=== PATIENT | male | born 1945 | race Two or more races ===

== ENCOUNTER 2017-11-04 12:33 | Emergency (ER) | payer OTHER ==
[~2017-11-04] VITALS: Ht 182.9 cm; Wt 127.0 kg
[~2017-11-04 12:33] MED LIST: ALDACTONE25 MG; AMBIEN10 MG; Aldactone 25 MG TABLET PO; CARdura PO; CEFEPIME IV; COZAAR50 MG; Cozaar PO; DIPHENOXYLATE-A1 TA1; HUMALOG100 U/M1; HUMULIN 70/30 V10 ML; HumaLOG 100 UNIT/1 ML (3ML) SUBCUTANEO; HumuLIN 70-30 VIAL 3ML SUBCUTANEO; IMDUR30 MG; Imdur 30MG PO; Invanz IV; LASIX20 MG; LEVAQUIN750 MG PO; LEVEMIR100 U/ML; Lantus 1000 U/10 ML SUBCUTANEO; Lasix 20MG TAB PO; METFORMIN HCL1000 MG; METOPROLOL TART50 MG; METRONIDAZOLE 500 MG/100 ML IV; Synthroid PO; Toprol Xl 50MG TAB PO; VANCOCIN 1GM/VIALMATE IV; ZOCOR PO; ZOCOR40 MG; Zolpidem Tartrate 10MG PO; [UNRECOGNIZED DRUG - CODE] PO
[2017-11-04] MEDS ORDERED: CARVEDILOL12.5 MG (13:14)
[2017-11-04] MEDS ORDERED: ALLOPURINOL300 MG (13:14)
[2017-11-04] MEDS ORDERED: AMLODIPINE BESYL5 MG (13:14)
[2017-11-04] MEDS ORDERED: LASIX40 MG (13:15)
[2017-11-04] MEDS ORDERED: HUMULIN N100 UNIT/2 (13:15)
[2017-11-04] MEDS ORDERED: GEMFIBROZIL600 MG (13:15)
[2017-11-04] MEDS ORDERED: LOPERAMIDE2 MG (13:16)
[2017-11-04] MEDS ORDERED: ISOSORBIDE DINI30 MG (13:16)
[2017-11-04] MEDS ORDERED: LEVOTHYROXINE112 MCG (13:16)
[2017-11-04] MEDS ORDERED: HUMULIN R500 UNIT/2 (13:16)
[2017-11-04] MEDS ORDERED: SIMVASTATIN40 MG (13:17)
[2017-11-04] MEDS ORDERED: LOSARTAN POTAS100 MG (13:17)
[2017-11-04] MEDS ORDERED: ALDACTONE50 MG (13:17)
[2017-11-04] MEDS ORDERED: ULTRAM50 MG (13:17)
[2017-11-04] MEDS ORDERED: AMBIEN5 MG (13:18)
== END 2017-11-04 16:30 | disposition home or self-care (01) ==
LOC: ER 12:33
DX: S62.636A Displaced fracture of distal phalanx of right little finger, initial encounter for closed fracture (principal); S68.126A Partial traumatic metacarpophalangeal amputation of right little finger, initial encounter; E11.9 Type 2 diabetes mellitus without complications; Z79.4 Long term (current) use of insulin; W27.0XXA Contact with workbench tool, initial encounter; Y93.89 Activity, other specified; Y92.018 Other place in single-family (private) house as the place of occurrence of the external cause; Y99.8 Other external cause status

== ENCOUNTER 2018-02-19 10:42 | Outpatient (CLI) | payer OTHER ==
[~2018-02-19 10:42] MED LIST changes: +ALDACTONE50 MG; +ALLOPURINOL300 MG; +AMBIEN5 MG; +AMLODIPINE BESYL5 MG; +CARVEDILOL12.5 MG; +GEMFIBROZIL600 MG; +HUMULIN N100 UNIT/2; +HUMULIN R500 UNIT/2; +ISOSORBIDE DINI30 MG; +LASIX40 MG; +LEVOTHYROXINE112 MCG; +LOPERAMIDE2 MG; +LOSARTAN POTAS100 MG; +SIMVASTATIN40 MG; +ULTRAM50 MG
== END 2018-02-19 10:48 | disposition home or self-care (01) ==
LOC: NUCLEAR 10:42
DX: I70.235 Atherosclerosis of native arteries of right leg with ulceration of other part of foot (principal); I70.263 Atherosclerosis of native arteries of extremities with gangrene, bilateral legs

== ENCOUNTER 2018-06-04 23:02 | Inpatient (IN) | payer OTHER ==
[~2018-06-04] VITALS: Ht 182.9 cm; Wt 127.0 kg
== END 2018-06-08 19:50 | disposition home or self-care (01) | DRG 638 ==
LOC: ER 23:02 → MEDJ 06-05 09:03 → SEC-K 06-05 09:03 → MEDJ 06-05 11:59
PROC: 3E0F7GC Introduction of Other Therapeutic Substance into Respiratory Tract, Via Natural or Artificial Opening (ICD-10-PCS; principal; 2018-06-05)
PROC: BW40ZZZ Ultrasonography of Abdomen (ICD-10-PCS; 2018-06-05)
DX: E11.621 Type 2 diabetes mellitus with foot ulcer (principal); L97.518 Non-pressure chronic ulcer of other part of right foot with other specified severity; E87.1 Hypo-osmolality and hyponatremia; I13.0 Hypertensive heart and chronic kidney disease with heart failure and stage 1 through stage 4 chronic kidney disease, or unspecified chronic kidney disease; I50.30 Unspecified diastolic (congestive) heart failure; E11.42 Type 2 diabetes mellitus with diabetic polyneuropathy; N17.8 Other acute kidney failure; E11.65 Type 2 diabetes mellitus with hyperglycemia; Z79.4 Long term (current) use of insulin; E11.21 Type 2 diabetes mellitus with diabetic nephropathy; E11.22 Type 2 diabetes mellitus with diabetic chronic kidney disease; N18.3 Chronic kidney disease, stage 3 (moderate); D63.1 Anemia in chronic kidney disease; E03.8 Other specified hypothyroidism; R60.1 Generalized edema; E66.01 Morbid (severe) obesity due to excess calories; B95.61 Methicillin susceptible Staphylococcus aureus infection as the cause of diseases classified elsewhere; B95.1 Streptococcus, group B, as the cause of diseases classified elsewhere; I25.10 Atherosclerotic heart disease of native coronary artery without angina pectoris

== ENCOUNTER 2018-08-20 11:03 | Inpatient (IN) | payer OTHER ==
[~2018-08-20] VITALS: Ht 182.9 cm; Wt 128.4 kg
[2018-08-20] MEDS ORDERED: LANTUS SOL100 UNIT/1 (11:51)
[2018-09-01] MEDS ORDERED: AMOX-CLAV 875-1 EACH PO (15:36)
[2018-09-01] MEDS ORDERED: DOXYCYCLINE HY100 M2 PO (15:38)
== END 2018-09-01 16:19 | disposition home or self-care (01) | DRG 571 ==
LOC: ER 11:03 → SEC-K 21:33 → MEDI 21:33 → MEDJ 08-21 13:17 → MEDI 08-21 13:17
PROC: BQ3LZZZ Magnetic Resonance Imaging (MRI) of Right Foot (ICD-10-PCS; 2018-08-21)
PROC: 0JBQ0ZZ Excision of Right Foot Subcutaneous Tissue and Fascia, Open Approach (ICD-10-PCS; principal; 2018-08-25)
DX: L97.512 Non-pressure chronic ulcer of other part of right foot with fat layer exposed (principal); L02.611 Cutaneous abscess of right foot; L03.115 Cellulitis of right lower limb; I13.0 Hypertensive heart and chronic kidney disease with heart failure and stage 1 through stage 4 chronic kidney disease, or unspecified chronic kidney disease; M86.672 Other chronic osteomyelitis, left ankle and foot; M86.671 Other chronic osteomyelitis, right ankle and foot; I83.215 Varicose veins of right lower extremity with both ulcer other part of foot and inflammation; I83.225 Varicose veins of left lower extremity with both ulcer other part of foot and inflammation; N17.8 Other acute kidney failure; L97.522 Non-pressure chronic ulcer of other part of left foot with fat layer exposed; L97.322 Non-pressure chronic ulcer of left ankle with fat layer exposed; L97.312 Non-pressure chronic ulcer of right ankle with fat layer exposed; E11.21 Type 2 diabetes mellitus with diabetic nephropathy; E11.621 Type 2 diabetes mellitus with foot ulcer; E11.69 Type 2 diabetes mellitus with other specified complication; E11.42 Type 2 diabetes mellitus with diabetic polyneuropathy; N18.3 Chronic kidney disease, stage 3 (moderate); D63.1 Anemia in chronic kidney disease; Z79.4 Long term (current) use of insulin; E03.8 Other specified hypothyroidism; I50.89 Other heart failure
CPT/HCPCS: 73221

== ENCOUNTER 2018-10-22 13:17 | Outpatient (CLI) | payer OTHER ==
[~2018-10-22 13:17] MED LIST changes: +AMOX-CLAV 875-1 EACH PO; +DOXYCYCLINE HY100 M2 PO; +LANTUS SOL100 UNIT/1
== END 2018-10-22 14:26 | disposition home or self-care (01) ==
LOC: RAD 13:17
DX: M86.371 Chronic multifocal osteomyelitis, right ankle and foot (principal)

== ENCOUNTER 2018-10-24 08:54 | Inpatient (IN) | payer OTHER ==
[~2018-10-24] VITALS: Ht 182.9 cm; Wt 123.8 kg
--- NOTE | 2018-10-24 09:16 | NUR ---
PACIENTE ALERTA,ACTIVO Y ORIENTADO.ES TRAIDO DEL AREA DE CUIDADO WOUND CARE POR ENFERMERA POR ULCERA EN PIE DERECHO POR INSTRUCCIONES DE DR CISSE PARA SER SEAN- LUADO Y TRATADO.
[2018-10-24] MEDS ORDERED: TRAMADOL HCL100 MG PO (09:30)
--- NOTE | 2018-10-24 10:06 | NUR ---
SE RECIBE PTE MASCULINO DE 73 YRS ALERTA CONCIETNE Y ORIENTADO . PTE ES EVALUADO POR LA QUIEN ORDENA TRATAMIENTO LA CUAL EL PTE REHUSA TRATAMIENTO SE TANNER DE MUESTRA Y CANALIZACION. SE LE NOTIFICA A LA .
--- NOTE | 2018-10-24 10:30 | NUR ---
10:30 AM SE EVALUA PACIENTE A SOLICITUD DE PARA POSIBLE INSERCION DE PICC LINE POR POBRE ACCESO VENOSO Y NECESIDAD DE MEDICAMENTOS. PACIENTE CON MUESTRAS DE ANAY Y CANALIZACION DE ACCESO PERIFERAL PENDIENTE YA QUE PERSONAL RN REFIERE PACIENTE HUSTON REHUSADO A LAS MISMAS. SE ORIENTA A PACIENTE SOBRE PROCEDIMIENTO DE INSERCION DE PICC LINE, RIESGOS Y BENEFICIOS. SE MUESTRA COOPERADOR. PACIENTE TUVO PICC LINE EN HOSPITALIZACION PREVIA SIN COMPLICACIONES. PACIENTE AL MOMENTO EN AREA DE OBSERVACION ER, NO ESTA ADMITIDO. SE LE INDICA AL MISMO QUE DEBE ESTAR ADMITIDO PARA INSERCION DE PICC LINE POR PROTOCOLO DE INSTITUCION Y QUE ES NECESARIO EVALUAR VALORES DE LABORATORIOS PARA DISMINUIR POR CIENTO DE RIESGOS. PACIENTE REFIERE ENTENDER ORIENTACION OFRECIDA Y ACEPTA TX PREVIAMENTE ORDENADO 10:46 AM SE REALIZA MUESTRAS DE LABS PARA CBC, CMP, PT, PTT E INR. SE ENVIA A LABORATORIO EN ESPERA DE RESULTADOS. SE CANALIZA ACCESO PERIFERAL EN ANTEBRAZO RT CON ANGIO #20 BAJO MEDIDAS ASEPTICAS. SE PHANI CON H/L PATENTE. 11:20 AM SE COMUNICA VIA TELEFONICA Y SE LE INFORMA SOBRE TX OFRECIDO. EL CUAL REFIERE SE DE SEGUIMIENTO A PACIENTE LUEGO DE COMPLETAR PROCESO DE ADMISION PARA INSERCION DE PICC LINE. SE BLANCA SEGUIMIENTO.
--- NOTE | 2018-10-24 13:11 | NUR ---
SE LE TANNER B/C X 3 A PTE Y SE COMENZARA EN ANTIBIOTICO Y SE MANTIENE BAJO OBSERVACION.
--- NOTE | 2018-10-24 17:48 | NUR ---
PTE ALERTA Y ORIENTADO X 3 ESFERAS EN BUTACA DE CUBICULO 11 EN COMPANIA DE FAMILIAR.PTE CON AREA DE VENOPUNCION PATENTE Y VIMAL DE EDEMA CON ANTIBIOTICOS BAJANDO SIN DIFICULTAD.PTE CON ULCERAS EN AMBAS PIERNAS CURADAS POR SKIN TEAM.PTE EVALUADO POR DR DAVIS
== END 2018-11-13 12:11 | disposition home or self-care (01) | DRG 622 ==
LOC: ER 08:54 → SEC-K 19:41 → SURG 19:41 → MEDJ 10-25 01:07 → SURG 10-25 10:40
PROVIDERS: Surgery; ADMIT Student in an Organized Health Care Education/Training Program
PROC: 02HV33Z Insertion of Infusion Device into Superior Vena Cava, Percutaneous Approach (ICD-10-PCS; 2018-10-24)
PROC: 3E0F7GC Introduction of Other Therapeutic Substance into Respiratory Tract, Via Natural or Artificial Opening (ICD-10-PCS; 2018-10-24)
PROC: BQ3LZZZ Magnetic Resonance Imaging (MRI) of Right Foot (ICD-10-PCS; 2018-10-26)
PROC: 0JBQ0ZZ Excision of Right Foot Subcutaneous Tissue and Fascia, Open Approach (ICD-10-PCS; principal; 2018-10-27 13:00)
DX: E11.621 Type 2 diabetes mellitus with foot ulcer (principal); I50.43 Acute on chronic combined systolic (congestive) and diastolic (congestive) heart failure; L97.413 Non-pressure chronic ulcer of right heel and midfoot with necrosis of muscle; L03.115 Cellulitis of right lower limb; I13.0 Hypertensive heart and chronic kidney disease with heart failure and stage 1 through stage 4 chronic kidney disease, or unspecified chronic kidney disease; M86.171 Other acute osteomyelitis, right ankle and foot; M86.172 Other acute osteomyelitis, left ankle and foot; J44.1 Chronic obstructive pulmonary disease with (acute) exacerbation; L97.414 Non-pressure chronic ulcer of right heel and midfoot with necrosis of bone; L02.612 Cutaneous abscess of left foot; L02.611 Cutaneous abscess of right foot; F33.1 Major depressive disorder, recurrent, moderate; N17.8 Other acute kidney failure; Z79.4 Long term (current) use of insulin; E11.65 Type 2 diabetes mellitus with hyperglycemia; E11.628 Type 2 diabetes mellitus with other skin complications; Z88.6 Allergy status to analgesic agent; E11.22 Type 2 diabetes mellitus with diabetic chronic kidney disease; N18.3 Chronic kidney disease, stage 3 (moderate); E11.21 Type 2 diabetes mellitus with diabetic nephropathy; D63.1 Anemia in chronic kidney disease; N04.9 Nephrotic syndrome with unspecified morphologic changes; R14.3 Flatulence; H10.13 Acute atopic conjunctivitis, bilateral; E11.51 Type 2 diabetes mellitus with diabetic peripheral angiopathy without gangrene; E78.2 Mixed hyperlipidemia; F17.210 Nicotine dependence, cigarettes, uncomplicated; G47.33 Obstructive sleep apnea (adult) (pediatric)
CPT/HCPCS: 73721